=== PATIENT | female | born 1970 | race Caucasian/White ===

== ENCOUNTER 2016-09-10 18:00 | Emergency (ER) | payer OTHER ==
[~2016-09-10] VITALS: Ht 160 cm; Wt 143.4 kg
[~2016-09-10 18:00] MED LIST: ADVAIR 250-501 EACH IH; ADVAIR 250/501 DISK IH; ALBUTEROL17 GM IH; ALLOPURINOL100 MG PO; ANTIVERT25 MG PO; ARMOUR THYROID120 MG PO; BENTYL20 MG PO; CARAFATE100 MG/ML PO; DONNATAL1 TABLET PO; DUONEB 2.5-0.5 M3 ML IH; FLEXERIL10 MG PO; FLONASE16 G1 BOTH NARES; HYDROCODON-ACE1 EAC7 PO; KEFLEX500 MG PO; KLONOPIN0.5 MG PO; LEVOTHROID200 MCG PO; LORAZEPAM0.5 MG PO; MECLIZINE HCL25 M3 PO; NAPROSYN-EC500 MG PO; NEXIUM40 MG PO; PRILOSEC40 MG PO; PROAIR HFA8.5 GM IH; PROTONIX40 M1 PO; PROTONIX40 MG PO; TYLENOL WITH C1 EACH PO; ULTRAM50 MG PO; VENTOLIN HFA18 GM IH; ZOFRAN ODT8 MG PO; ZOLOFT50 MG PO
[2016-09-10 19:18] LABS: HEMATOCRIT 35.1 % (36.0-46.0); MCH 20.8 PG (29.0-34.0); MCHC 28.8 G/DL (30.0-36.0); MCV 72.2 FL (83-99); MEAN PLAT.VOLUME 10.4 uM^3 (9.5-12.4); PLATELET COUNT 316 K/uL (156-360); RBC DIS.WIDTH-CV 16.8 % (11.8-14.6); RBC DIS.WIDTH-SD 43.5 % (39-53); RED BLOOD COUNT 4.86 M/uL (3.80-5.20); WHITE BLOOD COUNT 10.5 K/uL (4.1-10.2)
[2016-09-10 19:19] LABS: CHLORIDE 104 mEq/L (99-109); POTASSIUM 3.5 mEq/L (3.7-5.4); SODIUM 139 mEq/L (136-147)
[2016-09-10 19:20] LABS: GLUCOSE 90 mg/dL (70-99)
[2016-09-10 19:22] LABS: ANION GAP 13 MEQ/L (2-14)
[2016-09-10 19:24] LABS: GFR ESTIMATE (CALCULATED) > 59 mL/min/
[2016-09-10 19:25] LABS: UREA NITROGEN (BUN) 15 mg/dL (9-23)
[2016-09-10 19:25] LABS: TROP-I INTERPRETATION NEGATIVE; TROPONIN-I < 0.01 ng/mL (0.0-0.30)
[2016-09-10 21:56] LABS: TROP-I INTERPRETATION NEGATIVE; TROPONIN-I < 0.01 ng/mL (0.0-0.30)
[2016-09-10 22:34] VITALS: BP 142/84
== END 2016-09-10 22:39 | disposition home or self-care (01) ==
LOC: EME 18:00
PROVIDERS: Physician Assistant Medical
DX: R07.89 Other chest pain (principal); R42 Dizziness and giddiness; R68.83 Chills (without fever); J45.909 Unspecified asthma, uncomplicated; E03.9 Hypothyroidism, unspecified; Z90.49 Acquired absence of other specified parts of digestive tract; Z87.891 Personal history of nicotine dependence
CPT/HCPCS: 71020; 80048; 84484; 85027; 93005; 99281; 99283; J1885

== ENCOUNTER 2017-01-13 16:30 | Emergency (ER) | payer OTHER ==
[~2017-01-13] VITALS: Ht 160 cm; Wt 139.2 kg
[2017-01-13 20:19] VITALS: BP 145/72
[2017-01-13 20:37] VITALS: BP 129/58
[2017-01-13 21:21] VITALS: BP 126/60
[2017-01-13 22:05] VITALS: BP 127/66
[2017-01-13 23:16] VITALS: BP 125/71
[2017-01-15] MEDS ORDERED: ATIVAN0.5 MG PO (20:28)
[2017-01-15] MEDS ORDERED: SERTRALINE HCL50 MG PO (20:28)
[2017-01-15] MEDS ORDERED: ACID CONTROLLER10 MG PO (20:29)
[2017-01-15] MEDS ORDERED: PRILOSEC20 MG PO (20:30)
== END 2017-01-13 23:18 | disposition home or self-care (01) ==
LOC: EME 16:30
PROC: 30233N1 Transfusion of Nonautologous Red Blood Cells into Peripheral Vein, Percutaneous Approach (ICD-10-PCS; principal; 2017-01-13)
DX: D64.9 Anemia, unspecified (principal); N92.0 Excessive and frequent menstruation with regular cycle; J45.909 Unspecified asthma, uncomplicated; K21.9 Gastro-esophageal reflux disease without esophagitis; G47.30 Sleep apnea, unspecified; E03.9 Hypothyroidism, unspecified; Z87.891 Personal history of nicotine dependence
CPT/HCPCS: 80048; 84484; 85027; 86850; 86900; 86901; 86920; 93005; 99281; 99285; P9016

== ENCOUNTER 2017-01-22 08:04 | Emergency (ER) | payer OTHER ==
[~2017-01-22] VITALS: Ht 160 cm; Wt 139.9 kg
[~2017-01-22 08:04] MED LIST changes: +ACID CONTROLLER10 MG PO; +ATIVAN0.5 MG PO; +PRILOSEC20 MG PO; +SERTRALINE HCL50 MG PO
[2017-01-22 09:12] LABS: CHLORIDE 108 mEq/L (99-109); EOSINOPHIL (%) 3.8 % (0-5); EOSINOPHIL COUNT 0.3 K/uL (0-0.3); HEMATOCRIT 31.3 % (36.0-46.0); IMMATURE GRANULOCYTE (%) 0.4 % (0.0-0.7); MCHC 28.4 G/DL (30.0-36.0); MCV 70.3 FL (83-99); MEAN PLAT.VOLUME 10.4 uM^3 (9.5-12.4); MONOCYTE (%) 7.9 % (3-12); MONOCYTE COUNT 0.5 K/uL (0-0.8); PLATELET COUNT 252 K/uL (156-360); POTASSIUM 4.3 mEq/L (3.7-5.4); RBC DIS.WIDTH-CV 23.9 % (11.8-14.6); RBC DIS.WIDTH-SD 56.3 % (39-53); RED BLOOD COUNT 4.45 M/uL (3.80-5.20); SODIUM 139 mEq/L (136-147); WHITE BLOOD COUNT 6.8 K/uL (4.1-10.2)
[2017-01-22 09:13] LABS: GLUCOSE 97 mg/dL (70-99)
[2017-01-22 09:15] LABS: ANION GAP 8 MEQ/L (2-14)
[2017-01-22 09:17] LABS: GFR ESTIMATE (CALCULATED) > 59 mL/min/
[2017-01-22 09:18] LABS: UREA NITROGEN (BUN) 13 mg/dL (9-23)
[2017-01-22 09:25] LABS: QUANTITATIVE HCG < 4.0 MIU/ML
[2017-01-22] MEDS ORDERED: PROVERA,CYCRIN10 MG PO (10:09)
[2017-01-22 10:23] VITALS: BP 122/68
== END 2017-01-22 10:24 | disposition home or self-care (01) ==
LOC: EME 08:04
PROVIDERS: Emergency Medicine
DX: D25.9 Leiomyoma of uterus, unspecified (principal); N93.9 Abnormal uterine and vaginal bleeding, unspecified; D64.9 Anemia, unspecified; J45.909 Unspecified asthma, uncomplicated; Z87.891 Personal history of nicotine dependence
CPT/HCPCS: 80048; 84702; 85025; 86850; 86900; 86901; 99281; 99283; J7030

== ENCOUNTER 2017-03-12 08:08 | Emergency (ER) | payer OTHER ==
[~2017-03-12] VITALS: Ht 160 cm; Wt 138.5 kg
[~2017-03-12 08:08] MED LIST changes: +PROVERA,CYCRIN10 MG PO
[2017-03-12] MEDS ORDERED: ARMOUR THYROID15 MG PO (08:19)
[2017-03-12] MEDS ORDERED: ARMOUR THYROID90 MG PO (08:20)
[2017-03-12] MEDS ORDERED: NAPROSYN500 MG PO (09:15)
[2017-03-12] MEDS ORDERED: FLEXERIL10 MG PO (09:15)
[2017-03-12 09:44] VITALS: BP 145/62
== END 2017-03-12 09:45 | disposition home or self-care (01) ==
LOC: EME 08:08
DX: M76.61 Achilles tendinitis, right leg (principal); M25.561 Pain in right knee; G89.29 Other chronic pain; K21.9 Gastro-esophageal reflux disease without esophagitis; E03.9 Hypothyroidism, unspecified; Z87.891 Personal history of nicotine dependence
CPT/HCPCS: 99281; 99284; J1885

== ENCOUNTER 2017-04-13 03:55 | Emergency (ER) | payer OTHER ==
[~2017-04-13] VITALS: Ht 160 cm; Wt 142.3 kg
[~2017-04-13 03:55] MED LIST changes: +ARMOUR THYROID15 MG PO; +ARMOUR THYROID90 MG PO; +NAPROSYN500 MG PO
[2017-04-13 04:40] LABS: HEMATOCRIT 38.3 % (36.0-46.0); MCH 26.1 PG (29.0-34.0); MCHC 31.9 G/DL (30.0-36.0); MEAN PLAT.VOLUME 10.3 uM^3 (9.5-12.4); PLATELET COUNT 271 K/uL (156-360); RBC DIS.WIDTH-SD 41.5 % (39-53); RED BLOOD COUNT 4.67 M/uL (3.80-5.20); WHITE BLOOD COUNT 9.9 K/uL (4.1-10.2)
[2017-04-13 04:50] LABS: CHLORIDE 108 mEq/L (99-109); POTASSIUM 3.8 mEq/L (3.7-5.4); SODIUM 140 mEq/L (136-147)
[2017-04-13 04:51] LABS: GLUCOSE 126 mg/dL (70-99)
[2017-04-13 04:53] LABS: ANION GAP 11 MEQ/L (2-14)
[2017-04-13 04:55] LABS: GFR ESTIMATE (CALCULATED) > 59 mL/min/
[2017-04-13 04:56] LABS: UREA NITROGEN (BUN) 16 mg/dL (9-23)
[2017-04-13 05:05] LABS: QUANTITATIVE HCG < 4.0 MIU/ML
[2017-04-13 05:17] VITALS: BP 144/86
== END 2017-04-13 05:17 | disposition home or self-care (01) ==
LOC: EME 03:55
PROVIDERS: Emergency Medicine
DX: N93.9 Abnormal uterine and vaginal bleeding, unspecified (principal); Z91.041 Radiographic dye allergy status; J45.909 Unspecified asthma, uncomplicated; K21.9 Gastro-esophageal reflux disease without esophagitis; F41.9 Anxiety disorder, unspecified; E06.3 Autoimmune thyroiditis; E28.2 Polycystic ovarian syndrome; M10.9 Gout, unspecified; G47.30 Sleep apnea, unspecified
CPT/HCPCS: 80048; 84702; 85027; 99281; 99285; J7030

== ENCOUNTER 2017-05-22 05:33 | Emergency (ER) | payer OTHER ==
[~2017-05-22] VITALS: Ht 160 cm; Wt 143.2 kg
[2017-05-22 06:12] LABS: HEMATOCRIT 36.3 % (36.0-46.0); HEMOGLOBIN 11.7 G/DL (11.9-15.5); MCHC 32.2 G/DL (30.0-36.0); MCV 80.7 FL (83-99); PLATELET COUNT 357 K/uL (156-360); RBC DIS.WIDTH-CV 14.4 % (11.8-14.6); WHITE BLOOD COUNT 7.9 K/uL (4.1-10.2)
[2017-05-22 06:23] LABS: CHLORIDE 107 mEq/L (99-109); POTASSIUM 3.9 mEq/L (3.7-5.4); SODIUM 138 mEq/L (136-147)
[2017-05-22 06:24] LABS: GLUCOSE 115 mg/dL (70-99)
[2017-05-22 06:28] LABS: CREATININE 0.8 mg/dL (0.6-1.3); GFR ESTIMATE (CALCULATED) > 59 mL/min/
[2017-05-22 06:29] LABS: UREA NITROGEN (BUN) 15 mg/dL (9-23)
[2017-05-22] MEDS ORDERED: MEGACE20 MG PO (07:19)
[2017-05-22 07:29] LABS: APPEARANCE CLOUDY ((CLEAR)); BILIRUBIN NEGATIVE; BLOOD LARGE; COLOR BLOODY ((YELLOW)); GLUCOSE (STRIP) NEGATIVE; KETONES NEGATIVE; LEUKOCYTES NEGATIVE; NITRITE NEGATIVE; PROTEIN (STRIP) 30; UROBILINOGEN 0.2 MG/DL (0.2-1.0)
[2017-05-22 07:38] LABS: RED BLOOD CELLS TNTC /HPF (0-5)
[2017-05-22 07:39] LABS: EPITHELIAL CELLS 2+ /HPF; UCUL ADDED? YES
[2017-05-22 07:52] VITALS: BP 129/80
== END 2017-05-22 07:52 | disposition home or self-care (01) ==
LOC: EME 05:33
PROVIDERS: Emergency Medicine
DX: N93.9 Abnormal uterine and vaginal bleeding, unspecified (principal); D64.9 Anemia, unspecified; K21.9 Gastro-esophageal reflux disease without esophagitis; E06.3 Autoimmune thyroiditis; J45.909 Unspecified asthma, uncomplicated; M10.9 Gout, unspecified; F41.0 Panic disorder [episodic paroxysmal anxiety]; Z90.49 Acquired absence of other specified parts of digestive tract; Z90.89 Acquired absence of other organs; Z91.041 Radiographic dye allergy status
CPT/HCPCS: 80048; 81003; 85027; 86850; 86870; 86900; 86901; 86905; 86920; 87086; 99281; 99284

== ENCOUNTER 2017-05-25 15:25 | Emergency (ER) | payer OTHER ==
[~2017-05-25] VITALS: Ht 160 cm; Wt 141.5 kg
[~2017-05-25 15:25] MED LIST changes: +MEGACE20 MG PO
[2017-05-25 16:12] LABS: HEMATOCRIT 36.9 % (36.0-46.0); HEMOGLOBIN 11.6 G/DL (11.9-15.5); MCH 25.6 PG (29.0-34.0); MCHC 31.4 G/DL (30.0-36.0); MCV 81.5 FL (83-99); PLATELET COUNT 356 K/uL (156-360); RBC DIS.WIDTH-CV 14.6 % (11.8-14.6); RBC DIS.WIDTH-SD 42.6 % (39-53); RED BLOOD COUNT 4.53 M/uL (3.80-5.20); WHITE BLOOD COUNT 8.8 K/uL (4.1-10.2)
[2017-05-25 16:24] LABS: CHLORIDE 106 mEq/L (99-109); POTASSIUM 3.8 mEq/L (3.7-5.4); SODIUM 139 mEq/L (136-147)
[2017-05-25 16:26] LABS: GLUCOSE 130 mg/dL (70-99)
[2017-05-25 16:30] LABS: CREATININE 0.9 mg/dL (0.6-1.3); GFR ESTIMATE (CALCULATED) > 59 mL/min/
[2017-05-25 16:31] LABS: UREA NITROGEN (BUN) 15 mg/dL (9-23)
[2017-05-25 16:38] LABS: QUANTITATIVE HCG < 4.0 MIU/ML
[2017-05-25 23:26] VITALS: BP 122/72
[2017-05-29] MEDS ORDERED: ATIVAN1 MG PO (14:15)
[2017-05-29] MEDS ORDERED: IRON325 M1 PO (14:17)
[2017-05-29] MEDS ORDERED: TAYTULLA 1 MG-1 EACH PO (14:18)
[2017-05-29] MEDS ORDERED: VENTOLIN HFA18 GM IH (14:20)
[2017-05-29] MEDS ORDERED: ANTIVERT12.5 MG PO (15:00)
== END 2017-05-25 23:30 | disposition home or self-care (01) ==
LOC: EME 15:25
DX: N93.9 Abnormal uterine and vaginal bleeding, unspecified (principal); R10.30 Lower abdominal pain, unspecified; R42 Dizziness and giddiness; D25.9 Leiomyoma of uterus, unspecified; J45.909 Unspecified asthma, uncomplicated
CPT/HCPCS: 76856; 80048; 84702; 85027; 86850; 86870; 86900; 86901; 86905; 86920; 99281; 99284; J7030; J7050

== ENCOUNTER 2017-06-03 09:13 | Day surgery (SDC) | payer OTHER ==
[~2017-06-03] VITALS: Ht 160 cm; Wt 140.1 kg
[~2017-06-03 09:13] MED LIST changes: +ANTIVERT12.5 MG PO; +ATIVAN1 MG PO; +IRON325 M1 PO; +TAYTULLA 1 MG-1 EACH PO
[2017-06-03 09:45] VITALS: BP 168/79
[2017-06-03 15:40] VITALS: BP 134/67
[2017-06-03 16:31] VITALS: BP 116/58
[2017-06-03 18:54] VITALS: BP 114/53
[2017-06-03 19:32] VITALS: BP 138/65
== END 2017-06-03 20:00 | disposition home or self-care (01) ==
LOC: SDC 09:13
DX: N92.0 Excessive and frequent menstruation with regular cycle (principal); D25.9 Leiomyoma of uterus, unspecified; N80.0 Endometriosis of uterus; K21.9 Gastro-esophageal reflux disease without esophagitis; E06.3 Autoimmune thyroiditis; G47.30 Sleep apnea, unspecified; E28.2 Polycystic ovarian syndrome; J45.909 Unspecified asthma, uncomplicated; Z87.891 Personal history of nicotine dependence; Z79.84 Long term (current) use of oral hypoglycemic drugs; Z91.041 Radiographic dye allergy status; Z83.3 Family history of diabetes mellitus; Z82.49 Family history of ischemic heart disease and other diseases of the circulatory system; Z80.3 Family history of malignant neoplasm of breast
CPT/HCPCS: 88307; J0330; J0690; J1100; J1170; J1885; J2250; J2405; J2710; J3010; S0020